=== PATIENT | male | born 1985 | race Caucasian/White ===

== ENCOUNTER 2016-07-23 18:18 | Emergency (ER) | payer BC ==
[2016-07-23] MEDS ORDERED: IBUPROFEN 400 MG TABLET PO ONE (18:41)
[2016-07-23] MEDS ORDERED: IBUPROFEN 400 MG TABLET ONE (18:42)
--- NOTE | 2016-07-23 18:44 | ERNOTE ---
ENT HPI Presenting Symptoms: other Time Seen by Provider: 07/23/16 18:36 Source: patient Exam Limitations: no limitations - Immun/Allergies/Home Medications Immunizations: IMMUNIZATION HX Immunizations Up to Date Yes History of Influenza Vaccine Yes Hx Pneumococcal Vaccination No Allergies/Adverse Reactions: Allergies Allergy/AdvReac Type Severity Reaction Status Date / Time No Known Allergies Allergy Unverified 02/22/14 17:41 Home Medications: HOME MEDICATIONS Amoxicillin Trihydrate [Amoxil] 500 mg PO TID #30 cap 07/23/16 [Last Taken Unknown] - History of Present Illness Narrative: Patient has had a sore throat for five days, pain radiate to his right ear, no significant other symptoms, no cough, no fever Date (Duration): 07/19/16 Severity: Present: moderate ENT Location: Present: throat Modifying Factors - Improves: Reports: medication - ibuprofen 400mg at 13:00 Prior Treament: Denies: recently seen, similar symptoms before Review of Systems - Review of Systems Constitutional: Absent: recent illness, fever, chills ENT: Present: See HPI, ear pain, sore throat. Absent: nose congestion, nasal drainage Respiratory: Absent: shortness of breath, cough Cardiology: Absent: chest pain Gastrointestinal/Abdominal: Absent: nausea, vomiting, diarrhea, abdominal pain Musculoskeletal: Absent: muscle pain Neurological: Absent: headache - Patient's Past Medical History Patient History - Medical: No pertinent hx Patient History - Cardiac/Respiratory: No pertinent hx Patient History - Cancer: No Hx of Cancer Patient History - Surgical Procedures: No surgical history Patient History - Other: None - Social History Living Situations: home Abuse History: No History of abuse Psych History: No pertinent hx Smoking Status: Current every day smoker Patient requests Smoking Cessation Consult: No Initiate information on Smoking Cessation: No Alcohol Use: none Drug Use: none - Immunizations Immunizations Up to Date: Yes Hx Pneumococcal Vaccination: No History of Influenza Vaccine: Yes Physical Exam - Physical Exam General Appearance: Present: wd/wn, alert, no apparent distress Eye Exam: Normal inspection: bilateral Ears, Nose, Throat: Present: abnormal TM (R) - dull, abnormal TM (L) - dull, pharyngeal erythema, tonsillar swelling. Absent: pharyngeal swelling Neck: Present: lymphadenopathy (R), lymphadenopathy (L) Respiratory: Present: no respiratory distress, normal breath sounds, no accessory muscle use, lungs clear Cardiovascular/Chest: Present: regular rate, rhythm, no murmur Neurological Exam: Present: alert, oriented, normal mood/affect Skin Exam: Present: normal color, warm/dry ED Progress - Results and Orders Patient's Lab Results:: I have reviewed the patient's lab results. - Vital Signs Patient's Vital Signs:: I have reviewed the patient's vital signs. Vital Signs: Vital Signs 07/23/16 18:24 Temperature 36.6 C Pulse Rate 107 H Respiratory 18 Rate Blood Pressure 134/83 O2 Sat by Pulse 99 Oximetry - Progress/Reassessment Chief Complaint: Sore Throat Progress Note-Subjective: 07/23/16 19:00 discussed positive strep Departure Clinical Impression: Strep pharyngitis - Departure Disposition: Home self-care Condition: Good Instructions: Strep Throat, [id number], Form - Excuse from Work, School, or Physical Activity Referrals: Presley Galicia DO [Staff Physician] - Prescriptions: Amoxicillin Trihydrate [Amoxil] 500 mg PO TID #30 cap
[2016-07-23 19:26] VITALS: BP 130/72
== END 2016-07-23 19:18 | disposition home or self-care (01) ==
LOC: ER 18:18
DX: J02.0 Streptococcal pharyngitis (principal); F17.210 Nicotine dependence, cigarettes, uncomplicated